=== PATIENT | female | born 1945 | race Caucasian/White ===

== ENCOUNTER 2020-10-22 19:11 | Inpatient (IN) | payer MEDICARE ==
[~2020-10-22] VITALS: Ht 162.6 cm; Wt 70.2 kg
[2020-10-22] MEDS ORDERED: ACETAMINOPHEN 1000 MG/ISO-OSM 100 ML IV ONE (19:30)
[2020-10-22] MEDS ORDERED: SODIUM CHLORIDE 0.9% 2,100 ML IV ONE (19:30)
[2020-10-22] MEDS ORDERED: 0.9% SODIUM CHLORIDE 10 ML SYRINGE IVP PRN (19:30)
[2020-10-22 19:47] LABS: COVID AG,FIA SOURCE NASOPHARYNGEAL
[2020-10-22 19:49] LABS: BASOPHILS % (AUTO) 0.1 % (0.0-2.0); EOSINOPHILS % (AUTO) 0 % (1.0-6.0); HEMATOCRIT 34.7 % (36-46); HEMOGLOBIN 11.4 g/dL (12.0-16.0); LYMPHOCYTES # (AUTO) 0.4 K/uL (1.0-4.8); LYMPHOCYTES % (AUTO) 4.6 % (22.0-44.0); MEAN CORPUSCULAR HEMOGLOBIN 28.2 pg (26.0-34.0); MEAN CORPUSCULAR HGB CONC 32.8 G/dL (31.0-37.0); MEAN CORPUSCULAR VOLUME 86 fL (80-100); MONOCYTES # (AUTO) 0.6 K/uL (0.1-1.0); NEUTROPHILS # (AUTO) 7.2 K/uL (1.8-7.7); RED BLOOD CELL COUNT(AUTO) 4.03 MIL/uL (4.00-5.20); RED CELL DISTRIBUTION WIDTH 16.4 % (11.5-14.5)
[2020-10-22 19:50] LABS: NEUTROPHILS % (AUTO) 88.3 % (40.0-70.0)
[2020-10-22 19:52] LABS: ANION GAP 11 mmol/L (8-16); CALCIUM, TOTAL 7.7 mg/dL (8.8-10.5); CARBON DIOXIDE 23 mmol/L (22-29); CHLORIDE 102 mmol/L (98-107); CREATININE 0.84 mg/dL (0.60-1.30); GLOMERULAR FILTR. RATE CALC > 60 mL/min (>60); GLUCOSE,RANDOM 107 mg/dL (70-110); POTASSIUM 3.2 mmol/L (3.5-5.1); SODIUM SERUM 136 mmol/L (136-145); UREA NITROGEN, BLOOD 16 mg/dL (7-18)
[2020-10-22 19:59] LABS: ALANINE AMINOTRANSFERASE 26 U/L (12-78); ALBUMIN 2.7 g/dL (3.4-5.0); ALKALINE PHOSPHATASE 76 U/L (46-116); ASPARTATE AMINOTRANSFERASE 30 U/L (15-37); BILIRUBIN,TOTAL 1.8 mg/dL (0.1-1.0); CREATINE KINASE, TOTAL ONLY 74 U/L (26-192); TOTAL PROTEIN, SERUM 5.9 g/dL (6.4-8.2)
[2020-10-22 20:03] LABS: D-DIMER 5.06 mg/L FEU (0.00-0.50); INR 1.3 (0.9-1.1); PROTHROMBIN TIME 13.3 SEC (9.4-11.6)
[2020-10-22 20:09] LABS: LACTIC ACID 2.7 mmol/L (0.4-2.0)
[2020-10-22 20:14] LABS: APPEARANCE,URINE CLEAR (CLEAR); BILIRUBIN,URINE NEGATIVE (NEGATIVE); GLUCOSE, URINE (UA) NEGATIVE (NEGATIVE); KETONES,URINE 15 mg/dL (NEGATIVE); LEUKOCYTE ESTERASE ,URINE SMALL (NEGATIVE); NITRATE,URINE NEGATIVE (NEGATIVE); OCCULT BLOOD,URINE SMALL (NEGATIVE); PH,URINE 5.5 (5.0-8.0); PROTEIN,URINE TRACE (NEGATIVE)
[2020-10-22 20:34] LABS: PLATELET COUNT (AUTO) 76 K/uL (150-450)
[2020-10-22 20:45] LABS: B-TYPE NATRIURETIC PEPTIDE 198 pg/mL (0-100)
[2020-10-22 20:50] LABS: BACTERIA,URINE None Seen /HPF (None Seen); RBC,URINE 0-2 /HPF (0-2); SQUAMOUS EPITHELIAL CELL,UR Rare /LPF (None Seen)
[2020-10-22 20:54] LABS: INFLUENZA TYPE A NEGATIVE FOR TYPE A (NEGATIVE); INFLUENZA TYPE B NEGATIVE FOR TYPE B (NEGATIVE)
[2020-10-22] MEDS ORDERED: SODIUM CHLORIDE 0.9% 100 ML ONE (20:59)
[2020-10-22] MEDS ORDERED: IOVERSOL 350 MG/ML 100 ML VIAL ONE (20:59)
[2020-10-22 21:15] LABS: PHOSPHORUS 1.4 mg/dL (2.5-4.9)
[2020-10-22] MEDS ORDERED: AZITHROMYCIN 500 MG/NS 250 ML IV ONE (21:30)
[2020-10-22] MEDS ORDERED: LEVOFLOXACIN 750 MG/D5% WATER 150 ML IV ONE (21:30)
[2020-10-22] MEDS: POTASSIUM CHL 10 MEQ/WATER 50 ML IV SCH ×2 (21:56→23:29)
[2020-10-22] MEDS ORDERED: ONDANSETRON HCL 4 MG/2 ML VIAL IVP PRN (22:15)
[2020-10-22] MEDS ORDERED: MAGNESIUM OXIDE 400 MG TABLET PO PRN (22:15)
[2020-10-22] MEDS ORDERED: POTASSIUM CHL 10 MEQ/WATER 50 ML IV PRN (22:15)
[2020-10-22] MEDS ORDERED: ALBUTEROL SULFATE 2.5 MG/0.5 ML NEB SOLUTION NEB PRN (22:15)
[2020-10-22] MEDS ORDERED: POTASSIUM CHLORIDE 20 MEQ ER TABLET PO PRN (22:15)
[2020-10-22] MEDS ORDERED: POTASSIUM PHOS,M-BASIC-D-BASIC 30 MEQ in DEXTROSE 5%-WATER 150 ML IV ONE (22:15)
[2020-10-22] MEDS ORDERED: ZOLPIDEM TARTRATE 5 MG TABLET PO PRN (22:15)
[2020-10-22] MEDS ORDERED: MORPHINE SULFATE 2 MG/ML SYRINGE IVP PRN (22:15)
[2020-10-22] MEDS ORDERED: HYDROCODONE/ACETAMINOPHEN 5-325 MG TABLET PO PRN (22:15)
[2020-10-22] MEDS ORDERED: BISACODYL 10 MG RECTAL RECTAL SUPPOSITORY PR PRN (22:15)
[2020-10-22] MEDS ORDERED: MAGNESIUM HYDROXIDE SUSPENSION 30 ML UDCUP PO PRN (22:15)
[2020-10-22] MEDS ORDERED: MAGNESIUM SULFATE 4 GM/WATER 100 ML IV PRN (22:15)
[2020-10-22] MEDS ORDERED: MAGNESIUM SULFATE 2 GM/WATER 50 ML IV PRN (22:15)
[2020-10-22] MEDS ORDERED: GuaiFENesin SR 600 MG ER TABLET PO SCH (22:15)
[2020-10-22] MEDS ORDERED: IPRATROPIUM BROMIDE 0.5 MG/2.5 ML NEB SOLUTION NEB PRN (22:15)
[2020-10-22] MEDS ORDERED: ACETAMINOPHEN 325 MG TABLET PO PRN (22:15)
[2020-10-22] MEDS: GuaiFENesin SR 600 MG ER TABLET PO SCH (22:45)
[2020-10-23 00:08] LABS: ALBUMIN 2.1 g/dL (3.4-5.0); MAGNESIUM 1.8 mg/dL (1.80-2.40)
[2020-10-23 00:37] VITALS: BP 90/60
[2020-10-23 05:52] VITALS: BP 129/49
[2020-10-23 06:27] LABS: BASOPHILS % (AUTO) 0.2 % (0.0-2.0); EOSINOPHILS % (AUTO) 0 % (1.0-6.0); HEMATOCRIT 39.3 % (36-46); HEMOGLOBIN 12.7 g/dL (12.0-16.0); LYMPHOCYTES # (AUTO) 0.2 K/uL (1.0-4.8); LYMPHOCYTES % (AUTO) 2.5 % (22.0-44.0); MEAN CORPUSCULAR HEMOGLOBIN 28.2 pg (26.0-34.0); MEAN CORPUSCULAR HGB CONC 32.3 G/dL (31.0-37.0); MEAN CORPUSCULAR VOLUME 87 fL (80-100); MONOCYTES # (AUTO) 0.5 K/uL (0.1-1.0); MONOCYTES % (AUTO) 5.8 % (2.0-9.0); NEUTROPHILS # (AUTO) 8.2 K/uL (1.8-7.7); RED CELL DISTRIBUTION WIDTH 16.8 % (11.5-14.5)
[2020-10-23 06:37] LABS: ALANINE AMINOTRANSFERASE 40 U/L (12-78); ALBUMIN 2.2 g/dL (3.4-5.0); ALKALINE PHOSPHATASE 66 U/L (46-116); ANION GAP 12 mmol/L (8-16); ASPARTATE AMINOTRANSFERASE 91 U/L (15-37); CALCIUM, TOTAL 7.6 mg/dL (8.8-10.5); CARBON DIOXIDE 20 mmol/L (22-29); CHLORIDE 105 mmol/L (98-107); CREATININE 0.85 mg/dL (0.60-1.30); GLUCOSE,RANDOM 81 mg/dL (70-110); POTASSIUM 4.2 mmol/L (3.5-5.1); SODIUM SERUM 137 mmol/L (136-145); TOTAL PROTEIN, SERUM 5.4 g/dL (6.4-8.2); UREA NITROGEN, BLOOD 16 mg/dL (7-18)
[2020-10-23 06:47] LABS: NEUTROPHILS % (AUTO) 91.5 % (40.0-70.0)
[2020-10-23 06:54] LABS: GLOMERULAR FILTR. RATE CALC > 60 mL/min (>60)
[2020-10-23 07:17] VITALS: BP 106/47
[2020-10-23 07:28] LABS: PLATELET COUNT (AUTO) 79 K/uL (150-450); PLATELET MORPHOLOGY COMMENT GIANT PLTS PRESENT
[2020-10-23] MEDS: DOXYCYCLINE HYCLATE 100 MG in DEXTROSE 5%-WATER 100 ML IV SCH ×2 (08:25→21:41)
[2020-10-23] MEDS: MULTIVITAMINS, THERAPEUTIC TABLET PO SCH (11:00)
[2020-10-23] MEDS: FOLIC ACID 1 MG TABLET PO SCH (11:01)
[2020-10-23] MEDS: THIAMINE 100 MG TABLET PO SCH (11:01)
[2020-10-23] MEDS: GuaiFENesin SR 600 MG ER TABLET PO SCH ×2 (11:01→23:18)
[2020-10-23] MEDS: SODIUM CHLORIDE 0.9% 1,000 ML IV SCH ×2 (11:03→12:51)
[2020-10-23 15:30] VITALS: BP 115/53
[2020-10-23 19:10] VITALS: BP 122/61
[2020-10-23] MEDS ORDERED: SODIUM CHLORIDE 0.9% 250 ML IV ONE (21:53)
[2020-10-23] MEDS: LEVOFLOXACIN 750 MG/D5% WATER 150 ML IV SCH (23:18)
[2020-10-23 23:30] VITALS: BP 118/64
[2020-10-24 03:40] VITALS: BP 113/54
[2020-10-24] MEDS: SODIUM CHLORIDE 0.9% 1,000 ML IV SCH ×2 (04:53→18:51)
[2020-10-24 07:14] LABS: BASOPHILS % (AUTO) 0.2 % (0.0-2.0); EOSINOPHILS % (AUTO) 0.5 % (1.0-6.0); HEMATOCRIT 32.3 % (36-46); HEMOGLOBIN 10.9 g/dL (12.0-16.0); LYMPHOCYTES # (AUTO) 0.7 K/uL (1.0-4.8); LYMPHOCYTES % (AUTO) 7.6 % (22.0-44.0); MEAN CORPUSCULAR HEMOGLOBIN 28.7 pg (26.0-34.0); MEAN CORPUSCULAR HGB CONC 33.8 G/dL (31.0-37.0); MEAN CORPUSCULAR VOLUME 85 fL (80-100); MONOCYTES # (AUTO) 0.7 K/uL (0.1-1.0); MONOCYTES % (AUTO) 8.2 % (2.0-9.0); NEUTROPHILS # (AUTO) 7.5 K/uL (1.8-7.7); NEUTROPHILS % (AUTO) 83.5 % (40.0-70.0); PLATELET COUNT (AUTO) 59 K/uL (150-450); RED CELL DISTRIBUTION WIDTH 16.8 % (11.5-14.5)
[2020-10-24 07:18] LABS: PLATELET MORPHOLOGY COMMENT GIANT PLTS PRESENT
[2020-10-24 07:32] VITALS: BP 115/50
[2020-10-24 07:36] LABS: ALANINE AMINOTRANSFERASE 29 U/L (12-78); ALBUMIN 1.8 g/dL (3.4-5.0); ALKALINE PHOSPHATASE 61 U/L (46-116); ANION GAP 8 mmol/L (8-16); ASPARTATE AMINOTRANSFERASE 52 U/L (15-37); BILIRUBIN,TOTAL 1.2 mg/dL (0.1-1.0); CARBON DIOXIDE 23 mmol/L (22-29); CHLORIDE 105 mmol/L (98-107); CREATININE 0.63 mg/dL (0.60-1.30); GLUCOSE,RANDOM 95 mg/dL (70-110); POTASSIUM 3.5 mmol/L (3.5-5.1); SODIUM SERUM 136 mmol/L (136-145); TOTAL PROTEIN, SERUM 4.7 g/dL (6.4-8.2); UREA NITROGEN, BLOOD 17 mg/dL (7-18)
[2020-10-24 07:39] LABS: GLOMERULAR FILTR. RATE CALC > 60 mL/min (>60)
[2020-10-24 08:47] LABS: PHOSPHORUS 1.8 mg/dL (2.5-4.9)
[2020-10-24] MEDS: MULTIVITAMINS, THERAPEUTIC TABLET PO SCH (08:55)
[2020-10-24] MEDS: THIAMINE 100 MG TABLET PO SCH (08:55)
[2020-10-24] MEDS: FOLIC ACID 1 MG TABLET PO SCH (08:55)
[2020-10-24] MEDS: DOXYCYCLINE HYCLATE 100 MG in DEXTROSE 5%-WATER 100 ML IV SCH ×2 (10:16→21:22)
[2020-10-24 11:09] VITALS: BP 116/62
[2020-10-24] MEDS: GuaiFENesin SR 600 MG ER TABLET PO SCH ×2 (13:07→22:08)
[2020-10-24] MEDS ORDERED: BARIUM SULFATE 0.1% SUSPENSION 450 ML BOTTLE ONE (14:46)
[2020-10-24 15:24] VITALS: BP 119/60
[2020-10-24] MEDS ORDERED: IOVERSOL 350 MG/ML 100 ML VIAL ONE (19:35)
[2020-10-24] MEDS ORDERED: SODIUM CHLORIDE 0.9% 100 ML ONE (19:35)
[2020-10-24 19:41] VITALS: BP 115/48
[2020-10-24] MEDS: LEVOFLOXACIN 750 MG/D5% WATER 150 ML IV SCH (22:08)
[2020-10-25 00:10] VITALS: BP 120/46
[2020-10-25 04:14] VITALS: BP 110/47
[2020-10-25 07:44] VITALS: BP 112/50
[2020-10-25 08:01] LABS: BASOPHILS % (AUTO) 0.2 % (0.0-2.0); EOSINOPHILS % (AUTO) 1.5 % (1.0-6.0); HEMATOCRIT 33.8 % (36-46); LYMPHOCYTES # (AUTO) 0.9 K/uL (1.0-4.8); LYMPHOCYTES % (AUTO) 9.6 % (22.0-44.0); MEAN CORPUSCULAR HGB CONC 32.7 G/dL (31.0-37.0); MEAN CORPUSCULAR VOLUME 86 fL (80-100); MONOCYTES # (AUTO) 0.6 K/uL (0.1-1.0); MONOCYTES % (AUTO) 6.9 % (2.0-9.0); NEUTROPHILS # (AUTO) 7.6 K/uL (1.8-7.7); NEUTROPHILS % (AUTO) 81.8 % (40.0-70.0); PLATELET COUNT (AUTO) 73 K/uL (150-450); RED BLOOD CELL COUNT(AUTO) 3.95 MIL/uL (4.00-5.20); RED CELL DISTRIBUTION WIDTH 17.5 % (11.5-14.5)
[2020-10-25 08:16] LABS: ALANINE AMINOTRANSFERASE 28 U/L (12-78); ALBUMIN 1.7 g/dL (3.4-5.0); ALKALINE PHOSPHATASE 63 U/L (46-116); ANION GAP 7 mmol/L (8-16); ASPARTATE AMINOTRANSFERASE 34 U/L (15-37); BILIRUBIN,TOTAL 0.8 mg/dL (0.1-1.0); CALCIUM, TOTAL 7.8 mg/dL (8.8-10.5); CARBON DIOXIDE 22 mmol/L (22-29); CHLORIDE 107 mmol/L (98-107); CREATININE 0.57 mg/dL (0.60-1.30); GLUCOSE,RANDOM 97 mg/dL (70-110); POTASSIUM 3.8 mmol/L (3.5-5.1); SODIUM SERUM 136 mmol/L (136-145); TOTAL PROTEIN, SERUM 4.7 g/dL (6.4-8.2); UREA NITROGEN, BLOOD 14 mg/dL (7-18)
[2020-10-25 08:17] LABS: GLOMERULAR FILTR. RATE CALC > 60 mL/min (>60)
[2020-10-25] MEDS: FOLIC ACID 1 MG TABLET PO SCH (08:45)
[2020-10-25] MEDS: THIAMINE 100 MG TABLET PO SCH (08:45)
[2020-10-25] MEDS: DOXYCYCLINE HYCLATE 100 MG in DEXTROSE 5%-WATER 100 ML IV SCH ×2 (08:46→20:23)
[2020-10-25] MEDS: MULTIVITAMINS, THERAPEUTIC TABLET PO SCH (08:59)
[2020-10-25] MEDS: MICONAZOLE NITRATE 2% 142 GM CREAM [BAZA] TP SCH (08:59)
[2020-10-25] MEDS: GuaiFENesin SR 600 MG ER TABLET PO SCH ×2 (10:23→21:41)
[2020-10-25 10:57] VITALS: BP 121/53
[2020-10-25] MEDS: SODIUM CHLORIDE 0.9% 1,000 ML IV SCH (12:27)
[2020-10-25 16:00] VITALS: BP 126/49
[2020-10-25 19:20] VITALS: BP 120/51
[2020-10-25] MEDS: LEVOFLOXACIN 750 MG/D5% WATER 150 ML IV SCH (21:41)
[2020-10-26 00:13] VITALS: BP 111/63
[2020-10-26 03:48] VITALS: BP 116/58
[2020-10-26] MEDS: SODIUM CHLORIDE 0.9% 1,000 ML IV SCH (04:29)
[2020-10-26] MEDS: GuaiFENesin/D-METHORPHAN [SUGAR-FREE] 200-20MG/10 ML SYRUP UDCUP PO PRN ×2 (05:36→22:05)
[2020-10-26] MEDS: MULTIVITAMINS, THERAPEUTIC TABLET PO SCH (09:17)
[2020-10-26] MEDS: FOLIC ACID 1 MG TABLET PO SCH (09:17)
[2020-10-26] MEDS: THIAMINE 100 MG TABLET PO SCH (09:18)
[2020-10-26] MEDS: GuaiFENesin SR 600 MG ER TABLET PO SCH ×2 (09:18→22:04)
[2020-10-26] MEDS: DOXYCYCLINE HYCLATE 100 MG in DEXTROSE 5%-WATER 100 ML IV SCH (09:19)
[2020-10-26 09:30] LABS: BASOPHILS % (AUTO) 0.4 % (0.0-2.0); EOSINOPHILS % (AUTO) 2.7 % (1.0-6.0); HEMATOCRIT 36.6 % (36-46); HEMOGLOBIN 11.9 g/dL (12.0-16.0); LYMPHOCYTES # (AUTO) 1.1 K/uL (1.0-4.8); LYMPHOCYTES % (AUTO) 13.1 % (22.0-44.0); MEAN CORPUSCULAR HEMOGLOBIN 27.9 pg (26.0-34.0); MEAN CORPUSCULAR HGB CONC 32.4 G/dL (31.0-37.0); MEAN CORPUSCULAR VOLUME 86 fL (80-100); MONOCYTES # (AUTO) 0.7 K/uL (0.1-1.0); MONOCYTES % (AUTO) 8.6 % (2.0-9.0); NEUTROPHILS # (AUTO) 6.5 K/uL (1.8-7.7); NEUTROPHILS % (AUTO) 75.2 % (40.0-70.0); PLATELET COUNT (AUTO) 114 K/uL (150-450); RED BLOOD CELL COUNT(AUTO) 4.25 MIL/uL (4.00-5.20); RED CELL DISTRIBUTION WIDTH 17.8 % (11.5-14.5)
[2020-10-26 09:44] LABS: ALANINE AMINOTRANSFERASE 24 U/L (12-78); ALBUMIN 1.8 g/dL (3.4-5.0); ALKALINE PHOSPHATASE 69 U/L (46-116); ANION GAP 4 mmol/L (8-16); ASPARTATE AMINOTRANSFERASE 28 U/L (15-37); BILIRUBIN,TOTAL 0.9 mg/dL (0.1-1.0); CARBON DIOXIDE 23 mmol/L (22-29); CHLORIDE 107 mmol/L (98-107); CREATININE 0.51 mg/dL (0.60-1.30); GLUCOSE,RANDOM 96 mg/dL (70-110); SODIUM SERUM 134 mmol/L (136-145); UREA NITROGEN, BLOOD 11 mg/dL (7-18)
[2020-10-26 09:45] LABS: GLOMERULAR FILTR. RATE CALC > 60 mL/min (>60)
[2020-10-26] MEDS: MICONAZOLE NITRATE 2% 142 GM CREAM [BAZA] TP SCH (10:25)
[2020-10-26] MEDS: FUROSEMIDE 20 MG TABLET PO SCH (10:25)
[2020-10-26 11:05] VITALS: BP 92/50
[2020-10-26 16:48] VITALS: BP 124/66
[2020-10-26 19:58] VITALS: BP 121/59
[2020-10-26] MEDS: LEVOFLOXACIN 500 MG TABLET PO SCH (21:00)
[2020-10-26 23:51] VITALS: BP 104/52
[2020-10-27 03:55] VITALS: BP 138/85
[2020-10-27 06:10] LABS: HEMATOCRIT 35.1 % (36-46); HEMOGLOBIN 11.6 g/dL (12.0-16.0); MEAN CORPUSCULAR HEMOGLOBIN 28.3 pg (26.0-34.0); MEAN CORPUSCULAR HGB CONC 33.1 G/dL (31.0-37.0); MEAN CORPUSCULAR VOLUME 86 fL (80-100); PLATELET COUNT (AUTO) 134 K/uL (150-450); RED CELL DISTRIBUTION WIDTH 17.9 % (11.5-14.5)
[2020-10-27 06:54] LABS: ALANINE AMINOTRANSFERASE 25 U/L (12-78); ALBUMIN 1.9 g/dL (3.4-5.0); ALKALINE PHOSPHATASE 81 U/L (46-116); ANION GAP 8 mmol/L (8-16); ASPARTATE AMINOTRANSFERASE 27 U/L (15-37); BILIRUBIN,TOTAL 0.8 mg/dL (0.1-1.0); CALCIUM, TOTAL 8.4 mg/dL (8.8-10.5); CARBON DIOXIDE 24 mmol/L (22-29); CHLORIDE 105 mmol/L (98-107); CREATININE 0.49 mg/dL (0.60-1.30); GLOMERULAR FILTR. RATE CALC > 60 mL/min (>60); GLUCOSE,RANDOM 98 mg/dL (70-110); POTASSIUM 4.1 mmol/L (3.5-5.1); SODIUM SERUM 137 mmol/L (136-145); TOTAL PROTEIN, SERUM 5.1 g/dL (6.4-8.2); UREA NITROGEN, BLOOD 13 mg/dL (7-18)
[2020-10-27 07:05] VITALS: BP 123/56
[2020-10-27 07:51] LABS: BAND NEUTROPHILS % (MANUAL) 1 % (0-5); EOSINOPHILS % (MANUAL) 3 % (1-6); LYMPHOCYTES % (MANUAL) 20 % (22-44); MONOCYTES % (MANUAL) 5 % (2-9); REACTIVE LYMPHOCYTES 2 % (0-0); SEGMENTED NEUTROPHILS % 69 % (40-70)
[2020-10-27] MEDS: MICONAZOLE NITRATE 2% 142 GM CREAM [BAZA] TP SCH (07:57)
[2020-10-27] MEDS: FOLIC ACID 1 MG TABLET PO SCH (07:57)
[2020-10-27] MEDS: GuaiFENesin SR 600 MG ER TABLET PO SCH (07:58)
[2020-10-27] MEDS: THIAMINE 100 MG TABLET PO SCH (07:58)
[2020-10-27] MEDS: GuaiFENesin/D-METHORPHAN [SUGAR-FREE] 200-20MG/10 ML SYRUP UDCUP PO PRN (07:58)
[2020-10-27] MEDS: LEVOFLOXACIN 500 MG TABLET PO SCH (07:58)
[2020-10-27] MEDS: MULTIVITAMINS, THERAPEUTIC TABLET PO SCH (07:58)
[2020-10-27] MEDS: FUROSEMIDE 20 MG TABLET PO SCH (07:58)
[2020-10-27] MEDS ORDERED: HEPARIN SODIUM,PORCINE 5,000 UNITS/ML VIAL SQ SCH (10:00)
[2020-10-27 11:20] VITALS: BP 125/58
[2020-10-27] MEDS ORDERED: FOLI-130 PO (11:47)
[2020-10-27] MEDS ORDERED: GUAIF600 PO (11:48)
[2020-10-27] MEDS ORDERED: LEVO-72 PO (11:48)
[2020-10-27] MEDS ORDERED: MICO57CR2 TP (11:49)
[2020-10-27] MEDS ORDERED: THIA100T80 PO (11:50)
[2020-10-27] MEDS ORDERED: MULT-1203 PO (11:50)
[2020-10-27] MEDS ORDERED: HEPA500018 SQ (11:51)
[2020-10-27] MEDS ORDERED: ACET-2247 PO (11:51)
[2020-10-27] MEDS ORDERED: AUD NEB (11:52)
[2020-10-27] MEDS ORDERED: GUAIFCF5L PO (11:53)
[2020-10-27] MEDS ORDERED: BISA10SU11 PR (11:53)
[2020-10-27] MEDS ORDERED: MOM30 PO (11:57)
== END 2020-10-27 14:10 | DRG 871 ==
LOC: EMS 19:13 → 5N 22:10 → 5S 10-24 05:00
PROVIDERS: ADMIT Hospitalist; ATTEND Hospitalist
DX: A41.9 Sepsis, unspecified organism (principal); J18.9 Pneumonia, unspecified organism; E43 Unspecified severe protein-calorie malnutrition; J91.8 Pleural effusion in other conditions classified elsewhere; R18.8 Other ascites; G93.49 Other encephalopathy; E87.6 Hypokalemia; Z20.822 Contact with and (suspected) exposure to COVID-19; E83.39 Other disorders of phosphorus metabolism; D69.6 Thrombocytopenia, unspecified; F03.90 Unspecified dementia, unspecified severity, without behavioral disturbance, psychotic disturbance, mood disturbance, and anxiety; K74.60 Unspecified cirrhosis of liver; K80.20 Calculus of gallbladder without cholecystitis without obstruction; R62.7 Adult failure to thrive; Z88.0 Allergy status to penicillin; R53.81 Other malaise; Z68.26 Body mass index [BMI] 26.0-26.9, adult
CPT/HCPCS: 70450; 71045; 71275; 74177; 76700; 80053; 81001; 82040; 82140; 82550; 83605; 83735; 83880; 84100; 84145; 84484; 85025; 85379; 85610; 85730; 87040; 87426; 87804; 92610; 93005; 93971; 97162; 97530; 99291; A9575; J0131; J0456; J1956; J3480; J3490; J7030; J7050; J7060; 36415-L1; 36415-TC; U0003